=== PATIENT | male | born 1990 | race Asian ===

== ENCOUNTER 2021-01-21 17:12 | Emergency (ER) | payer OTHER ==
[2021-01-21 17:30] VITALS: BP 140/91; TEMP 98.8; BMI 29.8
[2021-01-21 18:40] LABS: BASO % 0.6 % (0-2.0); EOS % 0.5 % (0-4.5); HEMOGLOBIN 13.7 GM/dL (11.7-16.9); LYMPH % 12.8 % (8-40); MCH 28.9 pg (25.7-33.7); MCHC 33.4 g/dl (32.0-35.9); MEAN CELL VOLUME 86.6 fl (80-96); MEAN PLT VOLUME 8.1 fl (7.5-11.1); MONO % 13.3 % (3.8-10.2); NEUT % 72.8 % (42.8-82.8); PLATELET COUNT 294 K/MM3 (134-434); RBC 4.74 M/mm3 (4.00-5.60); RDW 14.1 % (11.9-15.9); WHITE BLOOD COUNT 7.2 K/mm3 (4.0-10.0)
[2021-01-21 19:18] LABS: CHLORIDE 99 mmol/L (98-107); POTASSIUM 4.2 mmol/L (3.5-5.1); SODIUM 132 mmol/L (136-145)
[2021-01-21 19:22] LABS: ALBUMIN 3.6 g/dl (3.4-5.0); ANION GAP 5 MMOL/L (8-16); BLOOD UREA NITROGEN 9.4 mg/dL (7-18); CALCIUM 8.5 mg/dL (8.5-10.1); CO2 27 mmol/L (21-32); GLUCOSE,RANDOM 113 mg/dL (74-106)
[2021-01-21 19:25] LABS: CREATININE 1.1 mg/dL (0.55-1.3); SGOT/AST 31 U/L (15-37); SGPT/ALT 50 U/L (13-61)
[2021-01-21 19:27] LABS: BILIRUBIN,TOTAL 0.4 mg/dL (0.2-1); TOT PROT 8.1 g/dl (6.4-8.2)
[2021-01-21 19:28] LABS: ALK PHOS 80 U/L (45-117)
[2021-01-21 20:03] VITALS: PULSE 87
== END 2021-01-21 20:06 | disposition home or self-care (01) ==
LOC: JER 17:12 → JERFT 17:12
DX: R07.9 Chest pain, unspecified (principal); G44.209 Tension-type headache, unspecified, not intractable
CPT/HCPCS: 36415; 70450-TC; 71046-TC-FY; 80053; 82550; 84484; 85025; 93005; 93010; 99284-25